=== PATIENT | female | born 1965 | race African-American/Black ===

== ENCOUNTER 2020-10-27 02:32 | Emergency (ER) | payer MEDICARE, OTHER ==
[~2020-10-27] VITALS: Ht 152.4 cm; Wt 54.4 kg
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
--- NOTE | 2020-10-27 02:59 | NUR ---
PATIENT WAS EXAMINED BY DR ANDERSON WITH NURSE PATRICK IN ROOM 02B.
[2020-10-27] MEDS ORDERED: OLANZAPINE 5 MG TABLET PO ONE (03:15)
[2020-10-27] MEDS ORDERED: OLANZAPINE 5 MG TABLET ONE (03:24)
--- NOTE | 2020-10-27 03:34 | NUR ---
DR ANDERSON MADE AWARE PATIENT REFUSED BLOOD DRAW AT THIS TIME. PER [facility] ATTEMPTED 3 X.
--- NOTE | 2020-10-27 04:19 | NUR ---
[employer] at bedside interviewing patient.
--- NOTE | 2020-10-27 04:40 | NUR ---
PATIENT WAS SEEN BY [employer] OFFICER STEVEN [id number] TO REPORT PATIENT IN ROOM NOT IN ANY DISTRESS.
[2020-10-27] MEDS ORDERED: OLAN10TA3 PO (06:29)
--- NOTE | 2020-10-27 06:35 | NUR ---
PER DR UMANA PATIENT OK TO DC.
[2020-10-27 06:40] VITALS: BP 121/76
--- NOTE | 2020-10-27 06:40 | NUR ---
Patient discharged to home in stable condition. Written and verbal after care instructions given. Patient verbalizes understanding of instructions. Stressed follow up or return to ER for worsening s/s.
== END 2020-10-27 06:45 | disposition home or self-care (01) ==
LOC: ER 02:41
DX: F29 Unspecified psychosis not due to a substance or known physiological condition (principal); Z59.0 Homelessness; G90.50 Complex regional pain syndrome I, unspecified
CPT/HCPCS: 93005; A4663

== ENCOUNTER 2021-02-24 04:45 | Emergency (ER) | payer MEDICARE, OTHER ==
[~2021-02-24] VITALS: Ht 154.9 cm; Wt 47.6 kg
[~2021-02-24 04:45] MED LIST: OLAN10TA3 PO
[2021-02-24] MEDS ORDERED: ONDANSETRON ODT 4 MG TAB.RAPDIS SL ONE (05:00)
[2021-02-24] MEDS ORDERED: HYDROCODONE/APAP 10-325 MG TABLET PO ONE (05:00)
[2021-02-24] MEDS ORDERED: ONDANSETRON ODT 4 MG TAB.RAPDIS ONE (05:07)
[2021-02-24] MEDS ORDERED: HYDROCODONE/APAP 10-325 MG TABLET ONE (05:08)
[2021-02-24] MEDS ORDERED: HYDR-3980 PO (05:10)
--- NOTE | 2021-02-24 05:18 | NUR ---
Called Non Emergency [employer] spoke to carbon coater machine operator [phone] who will send unit.
--- NOTE | 2021-02-24 05:48 | NUR ---
Patient given written and verbal discharge instructions. Patient verbalizes understanding of instructions. Patient is ambulatory with steady gait. Refuses offer of [facility] placement. Patient given list of available shelters in surrounding area.
[2021-02-24 05:49] VITALS: BP 128/78
== END 2021-02-24 05:50 | disposition home or self-care (01) ==
LOC: ER 04:53
DX: S20.212A Contusion of left front wall of thorax, initial encounter (principal); Y09 Assault by unspecified means; Y99.8 Other external cause status; G90.50 Complex regional pain syndrome I, unspecified; G89.4 Chronic pain syndrome; M79.642 Pain in left hand; M79.641 Pain in right hand; Z59.0 Homelessness; Z88.0 Allergy status to penicillin; Z79.899 Other long term (current) drug therapy; Z86.59 Personal history of other mental and behavioral disorders
CPT/HCPCS: 71101; 72170; 73130; A4663; Q0162

== ENCOUNTER 2021-06-01 13:21 | Emergency (ER) | payer MEDICARE, OTHER ==
[~2021-06-01] VITALS: Ht 154.9 cm; Wt 45.4 kg
[~2021-06-01 13:21] MED LIST changes: +HYDR-3980 PO
[2021-06-01] MEDS ORDERED: IBUPROFEN 600 MG TABLET PO ONE (13:45)
[2021-06-01] MEDS ORDERED: IBUP-1955 PO (13:48)
[2021-06-01] MEDS ORDERED: IBUPROFEN 600 MG TABLET ONE (13:57)
--- NOTE | 2021-06-01 14:26 | NUR ---
PT WAS EVALUATED BY DR SCRUGGS. PT WAS D/C'd TO HOME. D/C INSTRUCTIONS GIVEN TO THE PT BY DR SCRUGGS.
[2021-06-01 14:27] VITALS: BP 139/79
== END 2021-06-01 14:28 | disposition home or self-care (01) ==
LOC: ER 13:24
DX: M79.672 Pain in left foot (principal); M79.671 Pain in right foot; F22 Delusional disorders; F20.9 Schizophrenia, unspecified; Z59.0 Homelessness; F17.200 Nicotine dependence, unspecified, uncomplicated; G90.50 Complex regional pain syndrome I, unspecified
CPT/HCPCS: A4663

== ENCOUNTER 2021-07-01 23:26 | Emergency (ER) | payer MEDICARE, OTHER ==
[~2021-07-01] VITALS: Ht 149.9 cm; Wt 49.9 kg
[~2021-07-01 23:26] MED LIST changes: +IBUP-1955 PO
[2021-07-02] MEDS ORDERED: GABA-536 PO (00:12)
[2021-07-02] MEDS ORDERED: GABAPENTIN 300 MG CAPSULE PO ONE (00:15)
[2021-07-02] MEDS ORDERED: GABAPENTIN 300 MG CAPSULE ONE (00:22)
[2021-07-02 00:36] VITALS: BP 138/81
== END 2021-07-02 00:36 | disposition home or self-care (01) ==
LOC: ER 23:27
DX: G90.523 Complex regional pain syndrome I of lower limb, bilateral (principal); M79.672 Pain in left foot; M79.671 Pain in right foot; Z76.0 Encounter for issue of repeat prescription; Z86.59 Personal history of other mental and behavioral disorders; Z88.0 Allergy status to penicillin; Z59.02 Unsheltered homelessness
CPT/HCPCS: A4663

== ENCOUNTER 2022-02-26 01:48 | Emergency (ER) | payer OTHER ==
[~2022-02-26] VITALS: Ht 154.9 cm; Wt 49.9 kg
[~2022-02-26 01:48] MED LIST changes: +GABA-536 PO
--- NOTE | 2022-02-26 02:50 | NUR ---
DR. WINSTON AT BEDSIDE, MSE IN PROGRESS.
[2022-02-26] MEDS ORDERED: FLUCONAZOLE 100 MG TABLET ONE (02:57)
[2022-02-26] MEDS ORDERED: FLUC200T PO (03:05)
[2022-02-26] MEDS: FLUCONAZOLE 100 MG TABLET PO ONE (03:07)
[2022-02-26 03:13] VITALS: BP 118/70
--- NOTE | 2022-02-26 03:13 | NUR ---
Patient given written and verbal discharge instructions. Patient verbalizes understanding of instructions. Patient is ambulatory with steady gait. Refuses offer of half-way placement. Patient given list of available shelters in surrounding area. Steady gait.
== END 2022-02-26 03:14 | disposition home or self-care (01) ==
LOC: ER 01:52
DX: B37.3 Candidiasis of vulva and vagina (principal); Z59.00 Homelessness unspecified; G90.50 Complex regional pain syndrome I, unspecified; Z86.59 Personal history of other mental and behavioral disorders
CPT/HCPCS: A4663

== ENCOUNTER 2022-07-10 22:01 | Emergency (ER) | payer OTHER ==
[~2022-07-10] VITALS: Ht 154.9 cm; Wt 45.4 kg
[~2022-07-10 22:01] MED LIST changes: +FLUC200T PO
--- NOTE | 2022-07-10 22:40 | NUR ---
Dr. Blackwood at bedside. MSE in progress.
[2022-07-10] MEDS ORDERED: ONDANSETRON ODT 4 MG TAB.RAPDIS SL ONE (22:45)
[2022-07-10] MEDS ORDERED: OXYCODONE/APAP 5-325 MG TABLET PO ONE (22:45)
[2022-07-10] MEDS ORDERED: diphenhydrAMINE 25 MG/10 ML UDC PO ONE (22:45)
[2022-07-10] MEDS ORDERED: ONDANSETRON ODT 4 MG TAB.RAPDIS ONE (22:52)
[2022-07-10] MEDS ORDERED: diphenhydrAMINE 25 MG/10 ML UDC ONE (22:52)
[2022-07-10] MEDS ORDERED: OXYCODONE/APAP 5-325 MG TABLET ONE (22:53)
--- NOTE | 2022-07-10 22:55 | NUR ---
Patient went down for CT scan.
--- NOTE | 2022-07-10 23:03 | NUR ---
Patient back from CT.
[2022-07-10 23:29] LABS: HEMATOCRIT 32.3 % (31.2-41.9); MEAN CORPUSCULAR HEMOGLOBIN 29.2 uug (24.7-32.8); MEAN CORPUSCULAR VOLUME 86.2 fL (75.5-95.3); PLATELET COUNT (AUTO) 387 K/uL (179-408)
[2022-07-10 23:30] LABS: *BILIRUBIN,URIN NEGATIVE (NEGATIVE); *BLOOD, URINE NEGATIVE (NEGATIVE); *CLARITY,URINE CLEAR (CLEAR); *COLOR,URINE YELLOW (YELLOW); *KETONES,URINE TRACE (NEGATIVE); *UROBILINOGEN,URINE 0.2 E.U./dl (NORMAL); LEUKOCYTE ESTERASE ,URINE TRACE (NEGATIVE); NITRITE, URINE NEGATIVE (NEGATIVE); PH,URINE 5.5 (5.0-8.0); UGLUCOSE NEGATIVE (NEGATIVE)
[2022-07-10 23:31] LABS: *URINE HCG, QUAL NEGATIVE (NEGATIVE)
[2022-07-10 23:32] LABS: BACTERIA,URINE NONE SEEN /HPF (NONE SEEN); RBC,URINE 0-3 /HPF (0-3); SQUAMOUS EPITHELIAL CELL,UR FEW /HPF (NONE SEEN); WBC,URINE 0-3 /HPF (0-3)
[2022-07-10 23:45] LABS: ALANINE AMINOTRANSFERASE 32 U/L (14-59); ALKALINE PHOSPHATASE 96 U/L (50-136); ASPARTATE AMINOTRANSFERASE 14 U/L (15-37); BILIRUBIN,DIRECT < 0.1 mg/dL (0.0-0.2); BILIRUBIN,TOTAL 0.1 mg/dL (0.2-1.0); CARBON DIOXIDE 29 mmol/L (21-32); CHLORIDE 107 mmol/L (98-107); CREATININE 0.8 mg/dL (0.6-1.3); GLUCOSE 100 mg/dL (74-106); POTASSIUM 3.7 mmol/L (3.5-5.1); TOTAL PROTEIN, SERUM 6.7 g/dL (6.4-8.2); UREA NITROGEN, BLOOD 21 mg/dL (7-18)
[2022-07-11] MEDS ORDERED: OXYC-133 PO (00:15)
[2022-07-11] MEDS ORDERED: ONDA4TAB5 PO (00:15)
--- NOTE | 2022-07-11 01:15 | NUR ---
Patient provided a TAP card.
--- NOTE | 2022-07-11 01:30 | NUR ---
Patient discharged to home in stable condition. A/O x4. NAD noted. All belongings with patient. Written and verbal after care instructions given. Patient verbalizes understanding of instructions. Stressed follow up or return to ER for worsening s/s.
[2022-07-11 01:37] VITALS: BP 121/69
== END 2022-07-11 01:30 | disposition home or self-care (01) ==
LOC: ER 22:06
DX: R10.32 Left lower quadrant pain (principal); G89.4 Chronic pain syndrome; Z59.02 Unsheltered homelessness; F17.210 Nicotine dependence, cigarettes, uncomplicated; G90.50 Complex regional pain syndrome I, unspecified; Z88.0 Allergy status to penicillin
CPT/HCPCS: 99285; 74176; 76856; 99406; 80076; 80048; 81001; 84703; 85025; 85730; 36415; Q0163; A4663; Q0162

== ENCOUNTER 2022-08-25 17:38 | Emergency (ER) | payer OTHER ==
[~2022-08-25] VITALS: Ht 149.9 cm; Wt 49.9 kg
[~2022-08-25 17:38] MED LIST changes: +ONDA4TAB5 PO; +OXYC-133 PO
--- NOTE | 2022-08-26 00:10 | NUR ---
Placed in room 5B at this time.
--- NOTE | 2022-08-26 06:35 | NUR ---
PATIENT WALKING IN PLACE X 1 MINUTE PER MD ORDER, O2 SAT REMAINS 99-100%, ER MD INFORMED. NO S/S OF ANY DISTRESS NOTED AT THIS TIME. 120/75-80-18-99% ON ROOM AIR.
[2022-08-26] MEDS ORDERED: D-ME473S63 PO (06:40)
--- NOTE | 2022-08-26 06:43 | NUR ---
ACI GIVEN AT THIS TIME, PATIENT STATES UNDERSTANDING AND REMAINS STABLE FOR DISCHARGE.
[2022-08-26 07:06] VITALS: BP 128/60
== END 2022-08-26 07:06 | disposition home or self-care (01) ==
LOC: ER 17:40
DX: U07.1 COVID-19 (principal)
CPT/HCPCS: 87400; A4663

== ENCOUNTER 2022-10-04 01:35 | Emergency (ER) | payer OTHER ==
[~2022-10-04] VITALS: Ht 152.4 cm; Wt 45.4 kg
[~2022-10-04 01:35] MED LIST changes: +D-ME473S63 PO
[2022-10-04] MEDS ORDERED: GABA300C PO (02:17)
[2022-10-04] MEDS ORDERED: DEXL60CA3 PO (02:17)
[2022-10-04] MEDS ORDERED: LORA-259 PO (02:17)
--- NOTE | 2022-10-04 02:19 | NUR ---
Patient ambulated into room #4, informed of plan of care. Patient was seen by the ER MD. No s/s of any distress noted at this time. MD back at bedside talking with patient.
[2022-10-04] MEDS ORDERED: GABAPENTIN 300 MG CAPSULE ONE (02:29)
[2022-10-04] MEDS ORDERED: GABAPENTIN 300 MG CAPSULE PO ONE (02:30)
--- NOTE | 2022-10-04 02:31 | NUR ---
Patient medicated as per order.
[2022-10-04 02:44] VITALS: BP 147/60
--- NOTE | 2022-10-04 02:44 | NUR ---
ACI GIVEN REMAINS STABLE FOR DISCHARGE HOME.
== END 2022-10-04 02:45 | disposition home or self-care (01) ==
LOC: ER 01:35
DX: R19.7 Diarrhea, unspecified (principal); G89.4 Chronic pain syndrome; Z76.0 Encounter for issue of repeat prescription; Z59.00 Homelessness unspecified; G47.00 Insomnia, unspecified; F17.210 Nicotine dependence, cigarettes, uncomplicated; Z85.841 Personal history of malignant neoplasm of brain; Z86.69 Personal history of other diseases of the nervous system and sense organs
CPT/HCPCS: A4663

== ENCOUNTER 2022-10-24 04:24 | Emergency (ER) | payer OTHER ==
[~2022-10-24] VITALS: Ht 152.4 cm; Wt 45.4 kg
[~2022-10-24 04:24] MED LIST changes: +DEXL60CA3 PO; +GABA300C PO; +LORA-259 PO
[2022-10-24] MEDS ORDERED: DEXAMETHASONE SOD PHOSPHATE 4 MG INJ IM ONE (05:00)
[2022-10-24] MEDS ORDERED: KETOROLAC TROMETHAMINE 15 MG INJ IM ONE (05:00)
[2022-10-24] MEDS ORDERED: CEFTRIAXONE 500 MG VIAL IM ONE (05:30)
[2022-10-24] MEDS ORDERED: LIDOCAINE HCL 1% 20 ML VIAL TP ONE (05:30)
[2022-10-24] MEDS ORDERED: DOXYCYCLINE HYCLATE 100 MG TABLET PO ONE (05:30)
[2022-10-24] MEDS ORDERED: METRONIDAZOLE 500 MG TABLET PO ONE (05:30)
[2022-10-24] MEDS ORDERED: DOXYCYCLINE HYCLATE 100 MG TABLET ONE (05:44)
[2022-10-24] MEDS ORDERED: LIDOCAINE HCL 1% 20 ML VIAL ONE (05:44)
[2022-10-24] MEDS ORDERED: DEXAMETHASONE SOD PHOSPHATE 10 MG INJ ONE (05:44)
[2022-10-24] MEDS ORDERED: METR500T PO (05:45)
[2022-10-24] MEDS ORDERED: KETOROLAC TROMETHAMINE 15 MG INJ ONE (05:45)
[2022-10-24] MEDS ORDERED: CEFTRIAXONE 500 MG VIAL ONE (05:45)
[2022-10-24] MEDS ORDERED: METRONIDAZOLE 500 MG TABLET ONE (05:45)
[2022-10-24] MEDS ORDERED: DOXY100T2 PO (05:45)
--- NOTE | 2022-10-24 07:30 | NUR ---
Filter Tender Jelly assumes care: Hands off report received from HERMINIO Foster. Patient is still for results and dispositon. 1st contact with patient: asleep, easily arousable, her respiration is easy and non-labored, she is NAD, and she is moving all extremities, skin warm and dry.
--- NOTE | 2022-10-24 08:21 | NUR ---
Patient was given written and verbal discharge instructions. Patient verbalized understanding of instructions. Patient was seen ambulatory with steady gait, escorted by our hospital hospital security officer. Food-to-go prepared by the hospital was also given to patient. Patient refused offer of long-term placement. Patient was given a stapled list of available shelters and mental health clinics in surrounding area.
[2022-10-24 08:27] VITALS: BP 121/60
== END 2022-10-24 08:21 | disposition home or self-care (01) ==
LOC: ER 04:24
DX: J02.9 Acute pharyngitis, unspecified (principal); N89.8 Other specified noninflammatory disorders of vagina; Z20.822 Contact with and (suspected) exposure to COVID-19; F17.210 Nicotine dependence, cigarettes, uncomplicated; Z59.00 Homelessness unspecified; Z88.0 Allergy status to penicillin; Z85.841 Personal history of malignant neoplasm of brain; Z86.69 Personal history of other diseases of the nervous system and sense organs
CPT/HCPCS: 99284; 87426; 87804 ×2; 96372 ×2; J0696; J1100; J1885; J3490; A4663

== ENCOUNTER 2022-12-13 01:27 | Emergency (ER) | payer OTHER ==
[~2022-12-13] VITALS: Ht 149.9 cm; Wt 45.4 kg
[~2022-12-13 01:27] MED LIST changes: +DOXY100T2 PO; +METR500T PO
[2022-12-13] MEDS ORDERED: CYCLOBENZAPRINE HCL 10 MG TABLET PO ONE (02:15)
[2022-12-13] MEDS ORDERED: BENZOCAINE/MENTH/CETYLPYRD LOZENGE MM ONE ×2 (02:15→02:51)
[2022-12-13] MEDS ORDERED: CYCLOBENZAPRINE HCL 10 MG TABLET ONE ×2 (02:51→02:55)
[2022-12-13 09:13] VITALS: BP 120/78
== END 2022-12-13 09:13 | disposition home or self-care (01) ==
LOC: ER 01:27
DX: J02.9 Acute pharyngitis, unspecified (principal); Z88.0 Allergy status to penicillin; Z59.00 Homelessness unspecified; Z79.899 Other long term (current) drug therapy; Z79.2 Long term (current) use of antibiotics; Z79.1 Long term (current) use of non-steroidal anti-inflammatories (NSAID)
CPT/HCPCS: A4663

== ENCOUNTER 2023-05-19 02:24 | Emergency (ER) | payer OTHER ==
[~2023-05-19] VITALS: Ht 149.9 cm; Wt 45.4 kg
[2023-05-19 04:42] VITALS: BP 119/56; TEMP 98; O2SAT 99
[2023-05-19] MEDS ORDERED: GABA300C PO (05:13)
== END 2023-05-19 04:43 | disposition home or self-care (01) ==
LOC: ER 02:27
DX: T59.893A Toxic effect of other specified gases, fumes and vapors, assault, initial encounter (principal); J68.8 Other respiratory conditions due to chemicals, gases, fumes and vapors; R06.02 Shortness of breath; R05.9 Cough, unspecified; R06.00 Dyspnea, unspecified; R07.89 Other chest pain; Z59.00 Homelessness unspecified; Z88.0 Allergy status to penicillin; Z79.2 Long term (current) use of antibiotics; Z79.899 Other long term (current) drug therapy; Z79.1 Long term (current) use of non-steroidal anti-inflammatories (NSAID)
CPT/HCPCS: 71045; A4606; A4663

== ENCOUNTER 2023-07-23 20:48 | Emergency (ER) | payer OTHER | END 2023-07-23 23:06 | disposition left against medical advice (07) | LOC: ER 21:10 | DX: Z53.21 Procedure and treatment not carried out due to patient leaving prior to being seen by health care provider (principal) ==

== ENCOUNTER 2023-08-18 09:23 | Emergency (ER) | payer OTHER ==
[~2023-08-18] VITALS: Ht 152.4 cm; Wt 45.4 kg
[2023-08-18] MEDS ORDERED: ONDANSETRON 4 MG/2 ML VIAL IV ONE (10:00)
[2023-08-18] MEDS ORDERED: HYDROMORPHONE 1 MG/1 ML DISP.SYRIN IV ONE (10:00)
[2023-08-18] MEDS ORDERED: IV NORMAL SALINE 1000 ML BAG IV ONE (10:00)
[2023-08-18] MEDS ORDERED: HYDROMORPHONE 1 MG/1 ML DISP.SYRIN ONE (10:20)
[2023-08-18] MEDS ORDERED: ONDANSETRON 4 MG/2 ML VIAL ONE (10:20)
[2023-08-18 10:31] LABS: BASOPHILS % (AUTO) 0.2 % (0.0-2.0); DIFFERENTIAL COMMENT 1; EOSINOPHILS % (AUTO) 0.1 % (0.0-7.0); HEMATOCRIT 37.9 % (31.2-41.9); HEMOGLOBIN 12.6 g/dL (10.9-14.3); LYMPHOCYTES # (AUTO) 0.8 K/uL (0.8-4.8); MEAN CORPUSCULAR HEMOGLOBIN 28.2 uug (24.7-32.8); MEAN CORPUSCULAR HGB CONC 33 g/dL (32.3-35.6); MEAN CORPUSCULAR VOLUME 84.8 fL (75.5-95.3); MONOCYTES # (AUTO) 0.4 K/uL (0.1-1.30); NEUTROPHILS # (AUTO) 6.6 K/uL (1.8-8.9); NEUTROPHILS % (AUTO) 84.7 % (38.5-71.5); PLATELET COUNT (AUTO) 390 K/uL (179-408); RED BLOOD CELL COUNT(AUTO) 4.46 MIL/uL (3.63-4.92); RED CELL DISTRIBUTION WIDTH 12.9 % (12.3-17.7); WHITE BLOOD COUNT (AUTO) 7.8 K/uL (3.8-11.8)
[2023-08-18 10:47] LABS: ALANINE AMINOTRANSFERASE 72 U/L (14-59); ALBUMIN 3.2 g/dL (3.4-5.0); ALKALINE PHOSPHATASE 109 U/L (50-136); ASPARTATE AMINOTRANSFERASE 27 U/L (15-37); BILIRUBIN,DIRECT 0.1 mg/dL (0.0-0.2); BILIRUBIN,TOTAL 0.4 mg/dL (0.2-1.0); CALCIUM 8.9 mg/dL (8.5-10.1); CARBON DIOXIDE 20 mmol/L (21-32); CHLORIDE 104 mmol/L (98-107); CREATININE 0.4 mg/dL (0.6-1.3); GLUCOSE 104 mg/dL (74-106); LIPASE 28 U/L (16-77); POTASSIUM 3.3 mmol/L (3.5-5.1); UREA NITROGEN, BLOOD 18 mg/dL (7-18)
[2023-08-18 11:32] LABS: SODIUM SERUM 138 mmol/L (136-145)
[2023-08-18] MEDS ORDERED: PROC10TA29 PO (12:33)
[2023-08-18] MEDS ORDERED: ACET1TAB23 PO (12:33)
[2023-08-18 14:09] VITALS: BP 129/61; O2SAT 96
== END 2023-08-18 14:09 | disposition home or self-care (01) ==
LOC: ER 09:24
DX: R10.84 Generalized abdominal pain (principal); R11.2 Nausea with vomiting, unspecified; R19.7 Diarrhea, unspecified; R51.9 Headache, unspecified; Z79.899 Other long term (current) drug therapy; Z59.00 Homelessness unspecified; Z88.0 Allergy status to penicillin; Y04.8XXA Assault by other bodily force, initial encounter; Y93.89 Activity, other specified; Y92.89 Other specified places as the place of occurrence of the external cause; Y99.8 Other external cause status
CPT/HCPCS: 99285; 70450; 96374; 96361; 96375; 80076; 80048; 83690; 85025; 36415; 93005; 74176; J2405; J1170; J7040; A4606; A4663

== ENCOUNTER 2023-08-21 10:44 | Emergency (ER) | payer OTHER ==
[~2023-08-21] VITALS: Ht 172.7 cm; Wt 45.4 kg
[~2023-08-21 10:44] MED LIST changes: +ACET1TAB23 PO; -D-ME473S63 PO; -DEXL60CA3 PO; -DOXY100T2 PO; -FLUC200T PO; -GABA-536 PO; -HYDR-3980 PO; -IBUP-1955 PO; -LORA-259 PO; -METR500T PO; -OLAN10TA3 PO; -ONDA4TAB5 PO; -OXYC-133 PO; +PROC10TA29 PO
[2023-08-21] MEDS ORDERED: HALOPERIDOL LACTATE 5 MG/1 ML VIAL IM ONE ×2 (11:00→12:00)
[2023-08-21] MEDS ORDERED: diphenhydrAMINE 50 MG/1 ML VIAL IM ONE (11:00)
[2023-08-21] MEDS ORDERED: LORAZEPAM 2 MG/1 ML VIAL IM ONE (11:00)
[2023-08-21] MEDS ORDERED: HALOPERIDOL LACTATE 5 MG/1 ML VIAL ONE (11:57)
[2023-08-21] MEDS ORDERED: diphenhydrAMINE 50 MG/1 ML VIAL ONE (11:57)
[2023-08-21] MEDS ORDERED: LORAZEPAM 2 MG/1 ML VIAL ONE (11:58)
[2023-08-21 14:10] LABS: BASOPHILS % (AUTO) 0.2 % (0.0-2.0); HEMATOCRIT 35.7 % (31.2-41.9); HEMOGLOBIN 12.2 g/dL (10.9-14.3); LYMPHOCYTES # (AUTO) 1.1 K/uL (0.8-4.8); LYMPHOCYTES % (AUTO) 15.9 % (20.5-51.5); MEAN CORPUSCULAR HEMOGLOBIN 28.7 uug (24.7-32.8); MEAN CORPUSCULAR HGB CONC 34 g/dL (32.3-35.6); MEAN CORPUSCULAR VOLUME 83.9 fL (75.5-95.3); MONOCYTES # (AUTO) 0.4 K/uL (0.1-1.30); MONOCYTES % (AUTO) 5.8 % (0.0-11.0); NEUTROPHILS # (AUTO) 5.2 K/uL (1.8-8.9); NEUTROPHILS % (AUTO) 78.1 % (38.5-71.5); PLATELET COUNT (AUTO) 391 K/uL (179-408); RED BLOOD CELL COUNT(AUTO) 4.26 MIL/uL (3.63-4.92); WHITE BLOOD COUNT (AUTO) 6.7 K/uL (3.8-11.8)
[2023-08-21 14:17] LABS: CALCIUM 8.8 mg/dL (8.5-10.1); CARBON DIOXIDE 27 mmol/L (21-32); CHLORIDE 102 mmol/L (98-107); CREATININE 0.5 mg/dL (0.6-1.3); GLUCOSE 126 mg/dL (74-106); POTASSIUM 3.3 mmol/L (3.5-5.1); SODIUM SERUM 135 mmol/L (136-145); UREA NITROGEN, BLOOD 16 mg/dL (7-18)
[2023-08-21 14:20] LABS: ETHANOL < 3 MG/DL (0-10)
[2023-08-21 14:23] LABS: ALANINE AMINOTRANSFERASE 61 U/L (14-59); ALKALINE PHOSPHATASE 114 U/L (50-136); ASPARTATE AMINOTRANSFERASE 21 U/L (15-37); BILIRUBIN,DIRECT 0.1 mg/dL (0.0-0.2); BILIRUBIN,TOTAL 0.2 mg/dL (0.2-1.0); TOTAL PROTEIN, SERUM 6.8 g/dL (6.4-8.2)
[2023-08-21 14:24] LABS: ACETAMINOPHEN < 2.0 ug/mL (10-30)
[2023-08-21] MEDS ORDERED: POTASSIUM BICARBONATE/CIT AC 25 MEQ TABLET.EFF PO ONE (15:15)
[2023-08-21] MEDS ORDERED: IV NS 1000 ML 1,000 ML IV ONE (15:15)
[2023-08-21 18:51] LABS: *BILIRUBIN,URIN NEGATIVE (NEGATIVE); *BLOOD, URINE NEGATIVE (NEGATIVE); *CLARITY,URINE CLEAR (CLEAR); *COLOR,URINE YELLOW (YELLOW); *KETONES,URINE NEGATIVE (NEGATIVE); *PROTEIN,URINE 1+ (NEGATIVE); *UROBILINOGEN,URINE 0.2 E.U./dl (NORMAL); LEUKOCYTE ESTERASE ,URINE NEGATIVE (NEGATIVE); NITRITE, URINE NEGATIVE (NEGATIVE); UGLUCOSE NEGATIVE (NEGATIVE)
[2023-08-21 19:04] LABS: *AMPHETAMINE, URINE POSITIVE (NEGATIVE); *BARBITURATE, URINE NEGATIVE (NEGATIVE); *BENZODIAZEPINE, URINE NEGATIVE (NEGATIVE); *CANNABINOID, URINE POSITIVE (NEGATIVE); *COCCAINE, URINE NEGATIVE (NEGATIVE); *OPIATE, URINE NEGATIVE (NEGATIVE); *PHENCYCLIDINE SCREEN,URINE NEGATIVE (NEGATIVE); FENTANYL, URINE NEGATIVE (NEGATIVE)
[2023-08-21 19:24] LABS: RBC,URINE 0-3 /HPF (0-3)
[2023-08-21 19:25] LABS: BACTERIA,URINE FEW /HPF (NONE SEEN); SQUAMOUS EPITHELIAL CELL,UR FEW /HPF (NONE SEEN); WBC,URINE 0-3 /HPF (0-3)
[2023-08-21] MEDS ORDERED: POTASSIUM BICARBONATE/CIT AC 25 MEQ TABLET.EFF ONE (19:58)
[2023-08-22] MEDS ORDERED: OLAN5TAB3 PO (02:32)
[2023-08-22 06:33] VITALS: BP 119/67; TEMP 208.6; O2SAT 98
== END 2023-08-22 06:33 | disposition home or self-care (01) ==
LOC: ER 10:48
DX: R41.0 Disorientation, unspecified (principal); F15.10 Other stimulant abuse, uncomplicated; G89.4 Chronic pain syndrome; Z88.0 Allergy status to penicillin; Z59.00 Homelessness unspecified; Z79.899 Other long term (current) drug therapy; Z79.1 Long term (current) use of non-steroidal anti-inflammatories (NSAID); Z79.2 Long term (current) use of antibiotics
CPT/HCPCS: 80076; 80048; 81001; 85025; 36415; 99284; 96360; 96361; 96372 ×3; 80299; 80320; 80307; J1200; J1630; J2060; J7040; A4606; A4663; C1758; G0480